=== PATIENT | female | born 1950 | race Caucasian/White ===

== ENCOUNTER → 2020-08-25 | Outpatient (CLI) | payer MEDICARE ==
[~2020-08-25] MED LIST: CALC-31 PO; CETI10TA74 PO; HYDR-3164 PO; HYDR25TA10 PO; LEVO75TA5 PO; LOSA100T14 PO; MULT-496 PO; NITR100C62 PO; OXYC1TAB15 PO; VIT1TABL32 PO; VITA400C37 PO
== END ==
LOC: LAB 13:34
PROVIDERS: ATTEND Surgery
DX: Z01.812 Encounter for preprocedural laboratory examination (principal); K81.1 Chronic cholecystitis; Z20.828 Contact with and (suspected) exposure to other viral communicable diseases
CPT/HCPCS: U0003

== ENCOUNTER 2020-08-29 10:50 | Day surgery (SDC) | payer MEDICARE ==
[~2020-08-29] VITALS: Ht 165.1 cm; Wt 88.5 kg
[~2020-08-29 10:50] MED LIST changes: +ACETAMINOPHEN 500 MG TABLET PO ONE; +BUPIVACAINE-EPI 0.25%-1:200000 MPF 30 ML VIAL. INJ ONE; +DEXAMETHASONE SOD PHOS 20 MG/5 ML VIAL. ONE; +GLYCOPYRROLATE 1 MG/5 ML VIAL. ONE; +HYDROmorphone 2 MG/ML VIAL IV PRN; +INDOCYANINE GREEN 25 MG VIAL. IVP ONE; +IV RINGERS,LACTATED 1000ML 1,000 ML IV SCH; +LIDOCAINE 2% PF 5 ML VIAL. ONE; +MORPHINE SULFATE 2 MG/ML VIAL. IV PRN; +NEOSTIGMINE METHYLSULFATE 5 MG/5 ML SYRINGE. ONE; +ONDANSETRON PF 4 MG/2 ML VIAL. IV PRN; +ONDANSETRON PF 4 MG/2 ML VIAL. ONE; -OXYC1TAB15 PO; +PROCHLORPERAZINE 10 MG/2 ML VIAL. IV PRN; +PROPOFOL 10 MG/ML (20ML) VIAL. IV ONE; +ROCURONIUM 50 MG/5 ML VIAL. ONE; +SUCCINYLCHOLINE 200 MG/10 ML VIAL. ONE; +SURGICEL HEMOSTAT 4X8 EACH. ONE; +fentaNYL PF VIAL 100 MCG/2 ML VIAL IV PRN; +fentaNYL PF VIAL 100 MCG/2 ML VIAL ONE
[2020-08-29] MEDS ORDERED: fentaNYL PF VIAL 100 MCG/2 ML VIAL ONE ×2 (12:23→14:15)
[2020-08-29] MEDS ORDERED: ePHEDrine PF IN SALINE 50 MG/10 ML SYRINGE. IV ONE (12:35)
[2020-08-29] MEDS ORDERED: SEVOFLURANE 61 TO 120 MINUTES. IH ONE (12:35)
[2020-08-29] MEDS ORDERED: KETOROLAC 30 MG/ML VIAL. ONE (13:43)
--- NOTE | 2020-08-29 13:45 | PDOC4 ---
Operative Note Operative Note Date: August 29, 2020 at 1341 Preoperative diagnosis: Chronic cholecystitis cholelithiasis Postoperative diagnosis: Same Procedure: Robotic assisted laparoscopic cholecystectomy Surgeon: Ponce Dictation: Patient is 70-year-old female who is had right upper quadrant abdominal pain ultrasound showing gallstones. The procedure of robotic assisted laparoscopic cholecystectomy was explained to the patient detail risk benefits were also discussed including bleeding infection injury to intra-abdominal contents possible necessitating further open operations alternatives to this procedure also discussed with the patient who seemed to understand and gave both verbal and written consent to have the procedure performed. Patient was taken to the operating room placed in the supine position general anesthesia was initiated once patient was sleeping intubated her abdomen was prepped and draped usual sterile fashion using ChloraPrep. An area just below the umbilicus was injected with quarter percent Marcaine with epinephrine incision was made 11 blade scalpel and a varies needle was placed within the abdomen creating pneumoperitoneum once this was complete 12 mm port was placed in the da Ed 12 mm camera was placed within the abdomen was inspected it was noted that the gallbladder was quite edematous with some adhesions to the omentum. 8 mm da Ed port was placed in the right midabdomen and an 8 mm da Ed ports placed in the left midabdomen a 5 mm port was placed in the right upper abdomen and the gallbladder was aspirated of its bile contents through a aspirator through the 5 mm port. The da Ed robot was brought and docked all port sites surgeon went to the robotic console the dome of the gallbladder is grasped with a 5 mm grasper through the 5 mm port and retracted cephalad using a grasper and hook cautery the adherent tissues of the gallbladder down to the triangle were taken down using blunt dissection. It was noted that the common bile duct was very close to the gallbladder and with the edematous tissue great care was taken to slowly dissect the triangle of its adherent tissues. The ICG 9 was used to verify where the common bile duct was then to get a cholangiogram showing no stones within the common bile duct. Once the cystic duct was well cleared off of its adherent tissues it was clipped with hemolock clips proximally distally and transected with Endo Mick scissors. The cystic artery was then clipped with a hemolock clip and transected with electrocautery the gallbladder is taken off the liver with hook electrocautery. The right upper quadrant was irrigated and suctioned dry hemostasis was deemed to be appropriate that point surgeon went to the operative field scrubbed back in. The da Ed robot was undocked. A 5 mm camera is placed through the right lower port the gallbladder was placed in Endo Catch bag which removed from the umbilicus through the 12 mm port site. The pneumoperitoneum was reduced all ports were removed the fascial defect at the umbilicus closed with a [id number] 0 Vicryl suture and skin was reapproximated all port sites for subcuticular Monocryl Mastisol Steri-Strips and island dressings were applied. Patient was awakened and extubated in the operating room taken to recovery in stable condition all sponge instrument needle counts listed as correct estimated blood loss 20 mL CHINEDU RAMIREZ MD Aug 29, 2020 13:45
--- NOTE | 2020-08-29 13:48 | DISCH ---
DISCHARGE INSTRUCTIONS Condition on Discharge Condition on Discharge: Stable Activity After Discharge Activity Instructions for Disc: Avoid exertion Other activity instructions: No lifting more than 20 pounds for 2 weeks Diet after Discharge Diet after Discharge: Low Fat Wound Incision Care Other wound/incision instructi: May shower in 24 hours Contacting the after DC Call your doctor for: If your condition worsens Follow-Up Follow up with: Dr. Ramirez in 2 weeks CHINEDU RAMIREZ MD Aug 29, 2020 13:47
[2020-08-29] MEDS: fentaNYL PF VIAL 100 MCG/2 ML VIAL IV PRN ×2 (14:17→14:40)
[2020-08-29] MEDS ORDERED: OXYC1TAB15 PO (14:23)
[2020-08-29] MEDS ORDERED: oxyCODONE/APAP 5/325 1 TAB TABLET PO ONE ×2 (14:30)
[2020-08-29 14:55] VITALS: BP 99/52
--- NOTE | 2020-08-31 15:12 | PATHOLOGY ---
[facility] Accession Number: [id number] . 01 Material submitted: . gallbladder - GALLBLADDER AND CONTENTS . 01 Clinical history: . CHRONIC CHOLECYSTITIS WITH CALCULUS . 02 Diagnosis: Gallbladder, cholecystectomy: - Cholelithiasis. - Acute necrotizing and chronic cholecystitis with focally increased eosinophils. LBQ 08/31/2020 1148 Local . 02 Comment: There is no evidence of malignancy. (JPM/db; 08/31/2020) . 02 Electronically signed: . Bereket Corral MD, Pathologist NPI- [id number] . 01 Gross description: . The specimen is received in formalin, labeled "Sailaja Chiles, gallbladder and contents". Received is an intact gallbladder measuring 8.2 x 3.5 x 3.2 cm in greatest dimensions displaying a dusky vaca-brown serosal surface. Opening the specimen reveals a vaca-brown, shaggy to necrotic-appearing mucosa with a gallbladder wall thickness of 0.1 cm. Calculi are present displaying a light brown and multifaceted to granular appearance, and no masses or lesions are noted grossly. [employer] sections, to include the proximal margin, are submitted in cassette A1. (CAA; 08/30/2020) QA/[facility] 08/30/2020 1444 Local . 02 Pathologist provided ICD-10: K80.12 . 02 CPT . 936954 Specimen Comment: A courtesy copy of this report has been sent to [phone] Specimen Comment: [id number] Specimen Comment: Report sent to / DR MICHELE Performed at: [address], [place], [place] [id number] MD Linden Vanegas MD Phone: [phone] Performed at: 02 [facility] [address] [place], [place] [id number] MD Bereket Corral MD Phone: [phone]
== END 2020-08-29 15:45 | disposition home or self-care (01) ==
LOC: SURG 10:50 → EDUNIT# 12:00 → SURG 15:45
PROVIDERS: ATTEND Surgery
DX: K80.12 Calculus of gallbladder with acute and chronic cholecystitis without obstruction (principal); I10 Essential (primary) hypertension; E66.9 Obesity, unspecified; M19.90 Unspecified osteoarthritis, unspecified site; E03.9 Hypothyroidism, unspecified; Z90.710 Acquired absence of both cervix and uterus; Z98.890 Other specified postprocedural states; Z79.899 Other long term (current) drug therapy
CPT/HCPCS: 47563; 88304; J0330; J0690; J1100; J1885; J2405; J2704; J2710; J3010; J3490; J7030